=== PATIENT | female | born 1990 | race Caucasian/White ===

== ENCOUNTER 2017-08-02 09:46 | Emergency (ER) | payer OTHER ==
[~2017-08-02] VITALS: Ht 157.5 cm; Wt 54.0 kg
[2017-08-02 09:59] VITALS: BP 141/87; PULSE 91; RESP 14; TEMP 97.9; O2SAT 98
[2017-08-02] MEDS ORDERED: BUTA1CAP PO (10:06)
[2017-08-02] MEDS ORDERED: SPRI28TA PO (10:06)
--- NOTE | 2017-08-02 10:18 | PD ---
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 She states today she talked with her teacher who wanted her to get checked out. She states she' s also been having intermittent headaches. She states she feels like she is disoriented but knows her name and the date and where she is currently. She describes just feeling off and having difficulty sometimes coming up with staff when she's at work. She states in the past she's had numbness when she has headaches but denies any current numbness or weakness now. She denies any possibility of . She denies other associated complaints. PFSH Past Medical History Cerebrovascular Accident: No (states has not seen a physician for these episodes but feels like a tia in past) Migraines: Yes Influenza Vaccination: Yes ?: Not LMP: 07/11/17 Past Surgical History Cholecystectomy: Yes Social History Alcohol Use: No Tobacco Use: No Substance Use: No Allergies-Medications (Allergen,Severity, Reaction): Coded Allergies: No Known Drug Allergies (Verified Allergy, Unknown, 08/02/17) Reported Meds & Prescriptions Reported Meds & Active Scripts Active Reported Fioricet (Cghlzmqpnl-Wxwipczdeqvlc-Ioueifgf) 50-300-40 Mg Cap 1 Cap PO Q4H PRN Sprintec 28 (Norgestimate-Ethinyl Estradiol) 0.25-35 mg-Mcg Tab 1 Tab PO DAILY Review of Systems Except as stated in HPI: all other systems reviewed are Neg Physical Exam Narrative GENERAL: Well-nourished, well-developed patient. SKIN: Warm and dry. HEAD: Normocephalic and atraumatic. EYES: No injection or drainage. ENT: No nasal drainage noted. NECK: Supple, trachea midline. CARDIOVASCULAR: Regular rate and rhythm RESPIRATORY: Breath sounds equal bilaterally. No accessory muscle use. GASTROINTESTINAL: Abdomen soft, non-tender, nondistended. EXTREMITIES: No edema. NEUROLOGICAL: Awake and alert and oriented. Motor and sensory grossly within normal limits. Normal speech. 5 out of 5 in all 4 extremities, equal grasp bilaterally Data Data Last Documented VS Vital Signs Date Time Temp Pulse Resp B/P (MAP) Pulse Ox O2 Delivery O2 Flow Rate FiO2 08/02/17 11:07 08/02/17 09:59 97.9 91 14 98 Room Air Orders Orders Ct Brain W/O Iv Contrast(Rout) (08/02/17 ) MDM Medical Decision Making Medical Screen Exam Complete: Yes Emergency Medical Condition: Yes Medical Record Reviewed: Yes (past history confirmed) Interpretation(s) ct brain no acute Differential Diagnosis Migraine,ms, bleed, mass Narrative Course Will check CT brain and reevaluate. Patient's exam is normal at this time. Patient agrees to limited workup with outpatient follow-up given symptoms. ct brain no acute, Patient denies any new complaints and states that they are feeling better, all questions answered. Patient knows that follow up is incumbent on them and to return to the emergency room immediately if new or worsening symptoms develop. Patient given strict return precautions, vitals reviewed and are normal, agrees to further workup as an outpatient. Diagnosis Primary Impression: Memory difficulties Additional Impression: Cephalgia Qualified Codes: R51 - Headache Patient Instructions: General Instructions Additional Instructions: tylenol as needed, follow with primary this week, return as needed Med/Other Pt SpecificInfo: No Change to Meds Disposition: 01 DISCHARGE HOME Condition: Stable Asmita Nino MD Aug 02, 2017 10:18
--- NOTE | 2017-08-02 10:43 | RADRPT ---
EXAM DATE/TIME: 08/02/2017 10:27 [facility] COMPARISON: No previous studies available for comparison. INDICATIONS : Cephalgia, episode of dysphasia. RADIATION DOSE: 30.48 CTDIvol (mGy) MEDICAL HISTORY : Cerebrovascular disease. SURGICAL HISTORY : Cholecystectomy. ENCOUNTER: Initial ACUITY: 1 day PAIN SCALE: 5/10 LOCATION: Bilateral cranial TECHNIQUE: Multiple contiguous axial images were obtained of the head. Using automated exposure control and adj ustment of the mA and/or kV according to patient size, radiation dose was kept as low as reasonably a chievable to obtain optimal diagnostic quality images. DICOM format image data is available electro nically for review and comparison. FINDINGS: CEREBRUM: The ventricles are normal for age. No evidence of midline shift, mass lesion, hemorrhage or acute in farction. No extra-axial fluid collections are seen. POSTERIOR FOSSA: The cerebellum and brainstem are intact. The 4th ventricle is midline. The cerebellopontine angle i s unremarkable. EXTRACRANIAL: The visualized portion of the orbits is intact. SKULL: The calvaria is intact. No evidence of skull fracture. CONCLUSION: 1. No evidence of acute intracranial pathology. No masses are identified. Олег Sevilla MD on August 02, 2017 at 10:41 Board Certified Radiologist. This report was verified electronically.
== END 2017-08-02 11:08 | disposition home or self-care (01) ==
LOC: NEPC 09:46
DX: R51 Headache (principal)
CPT/HCPCS: 70450; 99284

== ENCOUNTER 2017-11-10 13:14 | Emergency (ER) | payer OTHER ==
[~2017-11-10] VITALS: Ht 157.5 cm; Wt 53.2 kg
[~2017-11-10 13:14] MED LIST: BUTA1CAP PO; SPRI28TA PO
--- NOTE | 2017-11-10 14:41 | PD ---
HPI Chief Complaint: Exposure to Blood/Body Fluids Time Seen by Provider: 14:25 Travel History International Travel<30 days: No Contact w/Intl Traveler<30days: No Traveled to known affect area: No History of Present Illness HPI 26-year-old female presents emergency Department with blood exposure while working here in [facility]. Patient states she was in the surgical suite, when she removed her safety goggles and a small amount of blood splash into her right eye. Patient was 86 years of age. Patient immediately flushed her right eye with fresh water. She is here for PEP recommendations. Patient is up-to-date on her immunizations. She has no acute complaints or visual changes. Patient has no known drug allergies. PFSH Past Medical History Cerebrovascular Accident: No Diminished Hearing: No Migraines: Yes ?: Not LMP: 11/03/2017 Past Surgical History Cholecystectomy: Yes Social History Alcohol Use: No Tobacco Use: No Substance Use: No Allergies-Medications (Allergen,Severity, Reaction): Coded Allergies: No Known Drug Allergies (Verified Allergy, Unknown, 08/02/17) Reported Meds & Prescriptions Reported Meds & Active Scripts Active Reported Sprintec 28 (Norgestimate-Ethinyl Estradiol) 0.25-35 mg-Mcg Tab 1 Tab PO DAILY Review of Systems Except as stated in HPI: all other systems reviewed are Neg General / Constitutional: No: Fever Eyes: No: Diploplia, Blurred Vision, Photophobia, Drainage, Redness, Foreign Body Sensation, Pain, Tearing, Blind Spots, Visual changes, Blindness HENT: No: Headaches Cardiovascular: No: Chest Pain or Discomfort Respiratory: No: Shortness of Breath Gastrointestinal: No: Abdominal Pain Genitourinary: No: Dysuria Musculoskeletal: No: Pain Skin: No Rash Neurologic: No: Weakness Psychiatric: No: Depression Endocrine: No: Polydipsia Hematologic/Lymphatic: No: Easy Bruising Physical Exam Narrative GENERAL: Patient is in no acute distress. SKIN: Warm and dry. HEAD: Atraumatic. Normocephalic. EYES: Pupils equal and round. No scleral icterus. No injection or drainage. ENT: No nasal bleeding or discharge. Mucous membranes pink and moist. Pharynx is clear. Airway is patent. NECK: Trachea midline. Supple and nontender. CARDIOVASCULAR: Regular rate and rhythm. RESPIRATORY: No accessory muscle use. Clear to auscultation. Breath sounds equal bilaterally. GASTROINTESTINAL: Abdomen soft, non-tender, nondistended. Hepatic and splenic margins not palpable. MUSCULOSKELETAL: Extremities without clubbing, cyanosis, or edema. No obvious deformities. NEUROLOGICAL: Awake and alert. No obvious cranial nerve deficits. Motor grossly within normal limits. Five out of 5 muscle strength in the arms and legs. Normal speech. PSYCHIATRIC: Appropriate mood and affect; insight and judgment normal. MDM Medical Decision Making Medical Screen Exam Complete: Yes Emergency Medical Condition: Yes Differential Diagnosis Blood exposure. Workplace injury. PEP counseling. Narrative Course Postexposure prophylaxis is not recommended at this time based on the patient's history and physical. Baseline labs are gathered as recommended by postexposure prophylaxis protocol. She will follow-up with employee med. Diagnosis Primary Impression: Employee exposure to blood Referrals: Employ Med Patient Instructions: Postexposure Prophylaxis (ED), General Instructions Additional Instructions: Follow-up with employee med. Follow-up with [facility] as discussed. Postexposure prophylaxis is not recommended at this time. Patient freely return to work immediately. Med/Other Pt SpecificInfo: No Meds Exist/No RX given Disposition: 01 DISCHARGE HOME Condition: Stable Mateo Ku Nov 10, 2017 14:41
[2017-11-11 12:49] LABS: HEPATITIS C AB IgG NEGATIVE (NEGATIVE)
== END 2017-11-10 15:32 | disposition home or self-care (01) ==
LOC: NEPD 13:14
DX: S05.51XA Penetrating wound with foreign body of right eyeball, initial encounter (principal); X58.XXXA Exposure to other specified factors, initial encounter; Y93.F9 Activity, other caregiving; Y92.234 Operating room of hospital as the place of occurrence of the external cause; Y99.0 Civilian activity done for income or pay; Z77.21 Contact with and (suspected) exposure to potentially hazardous body fluids
CPT/HCPCS: 86317; 86703; 86803; 99283